=== PATIENT | female | born 1945 ===

== ENCOUNTER 2018-06-01 12:49 | Emergency (ER) | payer OTHER ==
[~2018-06-01] VITALS: Ht 157.5 cm; Wt 65.8 kg
[~2018-06-01 12:49] MED LIST: DEPAKOTE ER250 MG PO; JANUMET 50-1,1 UDTAB PO; METFORMIN HYDRO25 GM MC
[2018-06-01] MEDS ORDERED: DICYCLOMINE HCL10 MG (13:20)
[2018-06-01] MEDS ORDERED: LIPITOR20 MG (13:20)
[2018-06-01] MEDS ORDERED: JANUMET XR 1001 EACH (13:21)
[2018-06-01] MEDS ORDERED: AMLODIPINE BESI25 GM (13:21)
[2018-06-01] MEDS ORDERED: LYRICA20 MG/1 ML (13:21)
== END 2018-06-01 16:07 | disposition home or self-care (01) ==
LOC: ER 12:49
DX: R42 Dizziness and giddiness (principal); J11.1 Influenza due to unidentified influenza virus with other respiratory manifestations

== ENCOUNTER 2018-08-07 19:51 | Emergency (ER) | payer OTHER ==
[~2018-08-07] VITALS: Ht 152.4 cm; Wt 49.9 kg
[~2018-08-07 19:51] MED LIST changes: +AMLODIPINE BESI25 GM; +DICYCLOMINE HCL10 MG; +JANUMET XR 1001 EACH; +LIPITOR20 MG; +LYRICA20 MG/1 ML
== END 2018-08-07 22:57 | disposition home or self-care (01) ==
LOC: ER 19:51
DX: R42 Dizziness and giddiness (principal)

== ENCOUNTER 2019-05-11 12:23 | Emergency (ER) | payer OTHER ==
[~2019-05-11] VITALS: Ht 157.5 cm; Wt 45.4 kg
[2019-05-11] MEDS ORDERED: COZAAR50 MG PO (14:46)
[2019-05-11] MEDS ORDERED: ISOSORBIDE DINI30 MG PO (14:47)
[2019-05-11] MEDS ORDERED: PLAVIX75 MG PO (14:47)
[2019-05-11] MEDS ORDERED: CHILDREN'S ASPI81 MG PO (14:48)
[2019-05-11] MEDS ORDERED: INSULIN SYRING1 EA29 SUBCUTANEO (14:48)
== END 2019-05-11 16:46 | disposition home or self-care (01) ==
LOC: ER 12:23
DX: S00.83XA Contusion of other part of head, initial encounter (principal); W06.XXXA Fall from bed, initial encounter; Y93.89 Activity, other specified; Y92.230 Patient room in hospital as the place of occurrence of the external cause; Y99.8 Other external cause status